=== PATIENT | female | born 1955 | race Caucasian/White ===

== ENCOUNTER 2019-03-28 12:17 | Emergency (ER) | payer OTHER, MEDICAID ==
[~2019-03-28] VITALS: Ht 157.5 cm; Wt 99.3 kg
[~2019-03-28 12:17] MED LIST: CARV6.25 PO; FURO-570 PO; LOSA25TA32 PO; LOVA20TA2 PO; SPIR50TA PO; SYN.075 PO
[2019-03-28 12:22] VITALS: BP 115/61
--- NOTE | 2019-03-28 12:27 | NUR ---
PT WHEELCHAIRED TO LOBBY
--- NOTE | 2019-03-28 14:01 | NUR ---
PT WHEELCHAIRED TO CHAIR C
--- NOTE | 2019-03-28 14:07 | NUR ---
63 Y/O FEMALE PRESENTS WITH RIGHT LEG PAIN BEHIND KNEE, SHARP, 10/10, DISABLING PT FROM AMBULATING. PT TYPICALLY USES WALKER ON WHEELSE BUT CANNOT AMBULATE AT THIS TIME AND HAS BEEN USING WHEELCHAIR TO TRANSPORT. PT REPORTS SHE WAS WALKING UP AND DOWN SOME STAIRS AT [employer] AND PAIN BEGAN AFTERWARDS. CMS+. PAIN PROVOKED BY ROM. DENIES ANY SOB/CP, N/V/D. PMH: CHF, PACEMAKER, CARDIOMYOPATHY, SCIATICA NKA
[2019-03-28] MEDS ORDERED: HYDROcodone/APAP 5/325 MG 1 TAB TAB PO ONE (14:15)
[2019-03-28 15:31] VITALS: BP 138/73
--- NOTE | 2019-03-28 15:32 | NUR ---
Patient discharged with v/s stable. Written and verbal after care instructions given and explained. Patient alert, oriented and verbalized understanding of instructions. Wheel Chair Assisted with to car. All questions addressed prior to discharge. ID band removed. Patient advised to follow up with PMD. Rx of IBU,NORCO given. Patient educated on indication of medication including possible reaction and side effects. Opportunity to ask questions provided and answered.
== END 2019-03-28 15:32 | disposition home or self-care (01) ==
LOC: MED 12:17
DX: M25.561 Pain in right knee (principal); J45.909 Unspecified asthma, uncomplicated; I11.0 Hypertensive heart disease with heart failure; I50.9 Heart failure, unspecified; E11.9 Type 2 diabetes mellitus without complications; E07.9 Disorder of thyroid, unspecified; F41.9 Anxiety disorder, unspecified; F32.9 Major depressive disorder, single episode, unspecified; Z79.899 Other long term (current) drug therapy
CPT/HCPCS: 73562; 99283